=== PATIENT | male | born 1970 | race Hispanic/Latino ===

== ENCOUNTER 2017-07-09 22:51 | Inpatient (IN) | payer SELFPAY ==
[~2017-07-09] VITALS: Ht 179.1 cm; Wt 125.2 kg
[2017-07-09] MEDS ORDERED: NITROGLYCERIN 1GM/1 INCH PACKET TD ONE (23:28)
[2017-07-09 23:41] LABS: BASOPHILS % (AUTO) 0.5 % (0.0-5.0); EOSINOPHILS % (AUTO) 1.6 % (0.0-8.0); HEMATOCRIT 45.5 % (42-54); LYMPHOCYTES % (AUTO) 11.9 % (21.0-51.0); MEAN CORPUSCULAR HEMOGLOBIN 28.7 pg (27.0-33.0); MEAN CORPUSCULAR HGB CONC 33.8 g/dL (32.0-36.0); MEAN CORPUSCULAR VOLUME 85.1 fL (79-99); MONOCYTES % (AUTO) 9.4 % (3.0-13.0); NEUTROPHILS % (AUTO) 76.6 % (40.0-77.0); PLATELET COUNT (AUTO) 245 K/uL (130-400); RED BLOOD CELL COUNT(AUTO) 5.34 MIL/uL (4.50-6.20); RED CELL DISTRIBUTION WIDTH 15.2 % (11.0-15.5); WHITE BLOOD COUNT (AUTO) 10.6 K/uL (4.8-10.8)
[2017-07-09 23:58] LABS: CREATININE 1.1 mg/dL (0.5-1.5); POTASSIUM 4.4 mmol/L (3.5-5.1)
[2017-07-10 00:09] LABS: ALBUMIN 3.8 g/dL (3.5-5.0); CREATINE KINASE MB 1.6 ng/mL (0.5-3.6); TOTAL PROTEIN, SERUM 7.2 g/dL (6.0-8.3)
[2017-07-10 00:13] LABS: B-TYPE NATRIURETIC PEPTIDE 85 pg/mL (0-100)
[2017-07-10] MEDS ORDERED: SODIUM CHLORIDE 0.9% 1000ML 1,000 ML IV ONE (01:05)
[2017-07-10 01:33] LABS: APPEARANCE,URINE Clear (CLEAR); BILIRUBIN,URINE Negative (NEGATIVE); COLOR,URINE Dark Yellow (YELLOW); GLUCOSE, URINE (UA) Negative (NEGATIVE); KETONES,URINE Negative (NEGATIVE); LEUKOCYTE ESTERASE ,URINE Negative (NEGATIVE); NITRATE,URINE Negative (NEGATIVE); OCCULT BLOOD,URINE Small (NEGATIVE); PROTEIN,URINE Negative (NEGATIVE); UROBILINOGEN,URINE 0.2 mg/dL (0.2-1.0)
[2017-07-10 01:44] LABS: BACTERIA,URINE Rare /HPF (None Seen); MUCUS,URINE Few LPF (None Seen); RBC,URINE 0-1 /HPF (0-1); SQUAMOUS EPITHELIAL CELL,UR Few /LPF (0-2); WBC,URINE 0-1 /HPF (0-1)
[2017-07-10] MEDS ORDERED: CLONIDINE HCL 0.1 MG TABLET ONE ×2 (02:07→08:42)
[2017-07-10] MEDS ORDERED: ONDANSETRON HCL 4 MG/2 ML VIAL IV PRN (04:45)
[2017-07-10] MEDS ORDERED: NITROGLYCERIN 0.4 MG SL TAB SL PRN (04:45)
[2017-07-10 07:21] LABS: CREATININE 1.1 mg/dL (0.5-1.5); POTASSIUM 3.6 mmol/L (3.5-5.1)
[2017-07-10] MEDS: METFORMIN HCL 500 MG TABLET PO SCH ×2 (08:00→17:13)
[2017-07-10] MEDS ORDERED: ASPIRIN 81MG TAB.CHEW ONE (08:41)
[2017-07-10] MEDS ORDERED: FUROSEMIDE 20 MG TABLET ONE (08:41)
[2017-07-10] MEDS ORDERED: LISINOPRIL 5 MG TABLET ONE (08:42)
[2017-07-10] MEDS ORDERED: CARVEDILOL 12.5 MG TABLET PO ONE (08:43)
[2017-07-10] MEDS ORDERED: METFORMIN HCL 500 MG TABLET ONE (08:43)
[2017-07-10] MEDS ORDERED: FAMOTIDINE 20MG TAB 20 MG TAB ONE (08:43)
[2017-07-10] MEDS ORDERED: ENOXAPARIN SODIUM 40 MG/0.4 ML SYRINGE SQ ONE (08:43)
[2017-07-10] MEDS: CARVEDILOL 12.5 MG TABLET PO SCH ×2 (09:00→19:54)
[2017-07-10] MEDS: CLONIDINE HCL 0.2 MG TABLET PO SCH ×2 (09:00→19:58)
[2017-07-10] MEDS: LISINOPRIL 20 MG TABLET PO SCH ×2 (09:00→19:53)
[2017-07-10] MEDS: FAMOTIDINE 20MG TAB 20 MG TAB PO SCH ×2 (09:00→19:52)
[2017-07-10] MEDS: ASPIRIN 325 MG TABLET PO SCH (09:00)
[2017-07-10] MEDS: FUROSEMIDE 20 MG TABLET PO SCH (09:00)
[2017-07-10] MEDS: ENOXAPARIN SODIUM 40 MG/0.4 ML SYRINGE SQ SCH (09:00)
[2017-07-10] MEDS ORDERED: HYDRALAZINE HCL 20 MG/ML VIAL ONE (13:47)
[2017-07-10 15:13] VITALS: BP 150/88
[2017-07-10 16:00] VITALS: BP 161/106
[2017-07-10] MEDS ORDERED: CARV25TA PO (16:01)
[2017-07-10] MEDS ORDERED: METF500T6 PO (16:01)
[2017-07-10] MEDS ORDERED: CLON0.2T PO (16:01)
[2017-07-10] MEDS ORDERED: LISI-613 PO (16:01)
[2017-07-10 16:16] VITALS: BP 166/105
[2017-07-10 16:31] VITALS: BP 160/111
[2017-07-10] MEDS ORDERED: ENALAPRILAT DIHYDRATE 1.25MG/ML 1ML VIAL IV PRN (16:45)
[2017-07-10 17:17] VITALS: BP 187/123
[2017-07-10] MEDS: HYDRALAZINE HCL 20 MG/ML VIAL IV PRN (18:03)
[2017-07-10 20:08] VITALS: BP 203/124
[2017-07-11] VITALS (8 sets, daily range): BP systolic 149–178; BP diastolic 88–111
[2017-07-11] MEDS: HYDRALAZINE HCL 20 MG/ML VIAL IV PRN ×3 (02:36→22:06)
[2017-07-11] MEDS ORDERED: ASPIRIN 81MG TAB.CHEW ONE (08:30)
[2017-07-11] MEDS ORDERED: CLONIDINE HCL 0.1 MG TABLET ONE (08:31)
[2017-07-11] MEDS: FUROSEMIDE 20 MG TABLET PO SCH (09:00)
[2017-07-11] MEDS: CLONIDINE HCL 0.2 MG TABLET PO SCH ×3 (09:00→20:56)
[2017-07-11] MEDS: ASPIRIN 325 MG TABLET PO SCH (09:00)
[2017-07-11] MEDS: LISINOPRIL 20 MG TABLET PO SCH ×2 (09:00→20:56)
[2017-07-11] MEDS: CARVEDILOL 12.5 MG TABLET PO SCH ×2 (09:01→20:55)
[2017-07-11] MEDS: METFORMIN HCL 500 MG TABLET PO SCH ×2 (09:01→17:24)
[2017-07-11] MEDS: FAMOTIDINE 20MG TAB 20 MG TAB PO SCH ×2 (09:01→20:53)
[2017-07-11] MEDS: ENOXAPARIN SODIUM 40 MG/0.4 ML SYRINGE SQ SCH (09:02)
[2017-07-12 03:39] VITALS: BP 132/100
[2017-07-12 04:08] LABS: CHOLESTEROL 187 mg/dL (<200); HDL CHOLESTEROL 54 mg/dL (29-71); LDL DIRECT 123 mg/dL (0-99); TRIGLYCERIDES 116 mg/dL (30-200)
[2017-07-12] MEDS: ACETAMINOPHEN 325 MG TAB PO PRN ×3 (04:21→05:38)
[2017-07-12 07:15] VITALS: BP 141/89
[2017-07-12] MEDS ORDERED: HYDROCHLOROTHIAZIDE 25 MG TABLET PO SCH (09:00)
[2017-07-12] MEDS: ASPIRIN 325 MG TABLET PO SCH (09:33)
[2017-07-12] MEDS: CARVEDILOL 12.5 MG TABLET PO SCH (09:36)
[2017-07-12] MEDS: CLONIDINE HCL 0.2 MG TABLET PO SCH ×2 (09:37→14:59)
[2017-07-12] MEDS: FAMOTIDINE 20MG TAB 20 MG TAB PO SCH (09:37)
[2017-07-12] MEDS: LISINOPRIL 20 MG TABLET PO SCH (09:37)
[2017-07-12] MEDS: ENOXAPARIN SODIUM 40 MG/0.4 ML SYRINGE SQ SCH (09:38)
[2017-07-12] MEDS: HYDRALAZINE HCL 20 MG/ML VIAL IV PRN ×2 (11:32→16:11)
[2017-07-12 12:07] VITALS: BP 160/114
[2017-07-12] MEDS: METFORMIN HCL 500 MG TABLET PO SCH (13:00)
[2017-07-12] MEDS ORDERED: ATOR10 PO (14:58)
[2017-07-12] MEDS ORDERED: METF500T6 PO (14:58)
[2017-07-12] MEDS ORDERED: HYDR25TA PO (14:58)
[2017-07-12] MEDS ORDERED: CLON0.3T PO (14:58)
[2017-07-12] MEDS ORDERED: LISI-613 PO (14:58)
[2017-07-12] MEDS ORDERED: ASPI-1012 PO (14:58)
[2017-07-12] MEDS ORDERED: CARV12.580 PO (14:58)
[2017-07-12 16:22] VITALS: BP 162/116
== END 2017-07-12 17:40 | disposition home or self-care (01) | DRG 305 ==
LOC: EDH 22:51 → EDHIP 22:52 → 2CH 07-10 14:42 → 2DH 07-12 05:41
PROVIDERS: ADMIT Family Medicine; ATTEND Family Medicine
DX: I16.0 Hypertensive urgency (principal); N28.1 Cyst of kidney, acquired; E11.9 Type 2 diabetes mellitus without complications; E66.9 Obesity, unspecified; I10 Essential (primary) hypertension; E78.5 Hyperlipidemia, unspecified; Z68.39 Body mass index [BMI] 39.0-39.9, adult; Z79.899 Other long term (current) drug therapy; Z79.84 Long term (current) use of oral hypoglycemic drugs
CPT/HCPCS: 36415; 71046; 76770; 80048; 80053; 80061; 81001; 82550; 82553; 82948; 83835; 83880; 84484; 85025; 93005; 93975; J0360; J1650; J7030

== ENCOUNTER 2017-07-21 00:32 | Emergency (ER) | payer SELFPAY ==
[~2017-07-21 00:32] MED LIST: ASPI-1012 PO; ATOR10 PO; CARV12.580 PO; CLON0.3T PO; HYDR25TA PO; LISI-613 PO; METF500T6 PO
[2017-07-21 01:15] LABS: BASOPHILS % (AUTO) 0.6 % (0.0-5.0); EOSINOPHILS % (AUTO) 2.1 % (0.0-8.0); HEMATOCRIT 43.1 % (42-54); LYMPHOCYTES % (AUTO) 15.6 % (21.0-51.0); MEAN CORPUSCULAR HEMOGLOBIN 28.4 pg (27.0-33.0); MEAN CORPUSCULAR HGB CONC 33.6 g/dL (32.0-36.0); MEAN CORPUSCULAR VOLUME 84.7 fL (79-99); MONOCYTES % (AUTO) 9.4 % (3.0-13.0); NEUTROPHILS % (AUTO) 72.3 % (40.0-77.0); PLATELET COUNT (AUTO) 215 K/uL (130-400); RED BLOOD CELL COUNT(AUTO) 5.09 MIL/uL (4.50-6.20); RED CELL DISTRIBUTION WIDTH 15.4 % (11.0-15.5); WHITE BLOOD COUNT (AUTO) 10.3 K/uL (4.8-10.8)
[2017-07-21 01:17] LABS: CREATININE 1.2 mg/dL (0.5-1.5); POTASSIUM 3.3 mmol/L (3.5-5.1)
[2017-07-21 01:20] LABS: INR 1.02 (0.85-1.15); PARTIAL THROMBOPLASTIN TIME 25.9 SEC (26.3-35.5); PROTHROMBIN TIME 10.7 SEC (9.6-11.6)
[2017-07-21 01:29] LABS: B-TYPE NATRIURETIC PEPTIDE 67 pg/mL (0-100)
[2017-07-21 01:30] LABS: ALBUMIN 3.6 g/dL (3.5-5.0); BILIRUBIN,TOTAL 0.8 mg/dL (0.2-1.0); CREATINE KINASE MB 1.7 ng/mL (0.5-3.6); TOTAL PROTEIN, SERUM 7.2 g/dL (6.0-8.3)
[2017-07-21 01:53] LABS: AMPHET/METH SCREEN,URINE NEGATIVE (NEGATIVE); BARBITURATE SCREEN, URINE NEGATIVE (NEGATIVE); BENZODIAZEPINES SCREEN,URINE NEGATIVE (NEGATIVE); CANNABINOID SCREEN,URINE NEGATIVE (NEGATIVE); COCAINE SCREEN,URINE NEGATIVE (NEGATIVE); OPIATE SCREEN,URINE NEGATIVE (NEGATIVE); PHENCYCLIDINE SCREEN,URINE NEGATIVE (NEGATIVE)
[2017-07-21] MEDS ORDERED: LABETALOL HCL 5 MG/ML 20ML VIAL IV ONE (02:13)
== END 2017-07-21 04:55 | disposition home or self-care (01) ==
LOC: EDH 00:32
DX: I10 Essential (primary) hypertension (principal); R07.89 Other chest pain; E11.9 Type 2 diabetes mellitus without complications
CPT/HCPCS: 36415; 71045; 80053; 80305; 82550; 82553; 83874; 83880; 84484 ×2; 85025; 85610; 85730; 93005 ×2; 96374; 99285; J3490

== ENCOUNTER 2017-07-23 11:25 | Inpatient (IN) | payer SELFPAY ==
[~2017-07-23] VITALS: Ht 177.8 cm; Wt 124.0 kg
[2017-07-23 12:23] LABS: BASOPHILS % (AUTO) 0.6 % (0.0-5.0); HEMATOCRIT 41.7 % (42-54); LYMPHOCYTES % (AUTO) 13.5 % (21.0-51.0); MEAN CORPUSCULAR HGB CONC 34.4 g/dL (32.0-36.0); MEAN CORPUSCULAR VOLUME 84.1 fL (79-99); MONOCYTES % (AUTO) 10.3 % (3.0-13.0); NEUTROPHILS % (AUTO) 73.6 % (40.0-77.0); NUCLEATED RED BLOOD CELLS 0.1 % (0.0-0.19); PLATELET COUNT (AUTO) 233 K/uL (130-400); RED BLOOD CELL COUNT(AUTO) 4.96 MIL/uL (4.50-6.20); RED CELL DISTRIBUTION WIDTH 15.2 % (11.0-15.5); WHITE BLOOD COUNT (AUTO) 9.9 K/uL (4.8-10.8)
[2017-07-23 12:28] LABS: APPEARANCE,URINE Clear (CLEAR); BILIRUBIN,URINE Negative (NEGATIVE); COLOR,URINE Yellow (YELLOW); GLUCOSE, URINE (UA) Negative (NEGATIVE); KETONES,URINE Negative (NEGATIVE); LEUKOCYTE ESTERASE ,URINE Negative (NEGATIVE); NITRATE,URINE Negative (NEGATIVE); OCCULT BLOOD,URINE Moderate (NEGATIVE); PROTEIN,URINE Negative (NEGATIVE); UROBILINOGEN,URINE 0.2 mg/dL (0.2-1.0)
[2017-07-23 12:38] LABS: CREATININE 2.1 mg/dL (0.5-1.5); POTASSIUM 3.3 mmol/L (3.5-5.1)
[2017-07-23 12:39] LABS: INR 1.04 (0.85-1.15); PARTIAL THROMBOPLASTIN TIME 28.4 SEC (26.3-35.5); PROTHROMBIN TIME 10.9 SEC (9.6-11.6)
[2017-07-23 12:51] LABS: ALBUMIN 3.8 g/dL (3.5-5.0); TOTAL PROTEIN, SERUM 7.3 g/dL (6.0-8.3)
[2017-07-23 13:18] LABS: AMPHET/METH SCREEN,URINE NEGATIVE (NEGATIVE); BARBITURATE SCREEN, URINE NEGATIVE (NEGATIVE); BENZODIAZEPINES SCREEN,URINE NEGATIVE (NEGATIVE); CANNABINOID SCREEN,URINE NEGATIVE (NEGATIVE); COCAINE SCREEN,URINE NEGATIVE (NEGATIVE); OPIATE SCREEN,URINE NEGATIVE (NEGATIVE); PHENCYCLIDINE SCREEN,URINE NEGATIVE (NEGATIVE)
[2017-07-23] MEDS ORDERED: NIFEDIPINE ER 30 MG TAB PO ONE (15:30)
[2017-07-23] MEDS ORDERED: HYDRALAZINE HCL 20 MG/ML VIAL IV PRN (17:30)
[2017-07-23] MEDS ORDERED: NIFEDIPINE ER 30 MG TAB PO SCH (17:30)
[2017-07-23 17:34] VITALS: BP 161/110
[2017-07-23 20:00] VITALS: BP 134/92
[2017-07-23] MEDS ORDERED: INSULIN GLARGINE 100 UNITS/ML 10 ML VIAL SQ SCH (21:00)
[2017-07-23] MEDS: INSULIN HUMULIN R 100 UNIT/ML 3ML SQ SCH (21:00)
[2017-07-23] MEDS ORDERED: FAMOTIDINE 20MG TAB 20 MG TAB PO SCH (21:15)
[2017-07-23] MEDS ORDERED: FAMOTIDINE 20MG TAB 20 MG TAB ONE (21:50)
[2017-07-23] MEDS: ACETAMINOPHEN-CODEINE 300/30MG TAB PO PRN (22:15)
[2017-07-24] VITALS (10 sets, daily range): BP systolic 139–173; BP diastolic 85–109
[2017-07-24] MEDS ORDERED: ALPRAZOLAM 0.25 MG TABLET PO ONE (01:15)
[2017-07-24] MEDS: ACETAMINOPHEN-CODEINE 300/30MG TAB PO PRN ×2 (05:25→16:16)
[2017-07-24 05:57] LABS: HEMATOCRIT 46.8 % (42-54); MEAN CORPUSCULAR HEMOGLOBIN 28.7 pg (27.0-33.0); MEAN CORPUSCULAR VOLUME 84.2 fL (79-99); PLATELET COUNT (AUTO) 256 K/uL (130-400); RED BLOOD CELL COUNT(AUTO) 5.55 MIL/uL (4.50-6.20); RED CELL DISTRIBUTION WIDTH 15.2 % (11.0-15.5); WHITE BLOOD COUNT (AUTO) 12.6 K/uL (4.8-10.8)
[2017-07-24] MEDS: INSULIN HUMULIN R 100 UNIT/ML 3ML SQ SCH ×4 (06:08→21:00)
[2017-07-24] MEDS: INSULIN DETEMIR 10ML 100 UNIT/ML 10ML SQ SCH (06:08)
[2017-07-24 06:16] LABS: CREATININE 1.5 mg/dL (0.5-1.5); POTASSIUM 3.2 mmol/L (3.5-5.1)
[2017-07-24] MEDS ORDERED: INSULIN GLARGINE 100 UNITS/ML 10 ML VIAL SQ SCH (07:00)
[2017-07-24] MEDS: ALPRAZOLAM 0.5 MG TABLET PO PRN ×2 (10:10→22:22)
[2017-07-24] MEDS: NIFEDIPINE ER 30 MG TAB PO SCH (10:10)
[2017-07-24] MEDS: FAMOTIDINE 20MG TAB 20 MG TAB PO SCH (10:10)
[2017-07-25 03:10] VITALS: BP 155/104
[2017-07-25 03:53] LABS: MEAN CORPUSCULAR HEMOGLOBIN 28.6 pg (27.0-33.0); MEAN CORPUSCULAR HGB CONC 34.2 g/dL (32.0-36.0); MEAN CORPUSCULAR VOLUME 83.8 fL (79-99); NUCLEATED RED BLOOD CELLS 0.1 % (0.0-0.19); PLATELET COUNT (AUTO) 253 K/uL (130-400); RED BLOOD CELL COUNT(AUTO) 5.37 MIL/uL (4.50-6.20); RED CELL DISTRIBUTION WIDTH 15.3 % (11.0-15.5); WHITE BLOOD COUNT (AUTO) 11.2 K/uL (4.8-10.8)
[2017-07-25 04:04] LABS: EOSINOPHILS % (MANUAL) 1 % (1-6); LYMPHOCYTES % (MANUAL) 16 % (22-44); MONOCYTES % (MANUAL) 11 % (2-9); SEGMENTED NEUTROPHILS % 72 % (40-70)
[2017-07-25 04:05] LABS: MAN.DIFF COMMENT-IMPRESSION MANUAL DIFFERENTIAL; PLATELET MORPHOLOGY COMMENT ADEQUATE
[2017-07-25 04:21] LABS: CREATININE 1.4 mg/dL (0.5-1.5)
[2017-07-25 04:24] LABS: POTASSIUM 2.8 mmol/L (3.5-5.1)
[2017-07-25] MEDS ORDERED: POTASSIUM CHLORIDE 20MEQ/100ML 100 ML IV PRN (05:00)
[2017-07-25] MEDS ORDERED: LIDOCAINE HCL-MPF 1% 2ML VIAL IVP PRN (05:00)
[2017-07-25] MEDS ORDERED: POTASSIUM CHLORIDE 10% ELIXIR 20 MEQ/15 ML UDCUP PO PRN (05:00)
[2017-07-25] MEDS: INSULIN HUMULIN R 100 UNIT/ML 3ML SQ SCH ×4 (06:22→21:00)
[2017-07-25] MEDS: INSULIN DETEMIR 10ML 100 UNIT/ML 10ML SQ SCH (06:22)
[2017-07-25] MEDS ORDERED: SODIUM CHLORIDE 0.9% 500ML 500 ML IV ONE (07:27)
[2017-07-25] MEDS: POTASSIUM CHLORIDE 20 MEQ ERTAB PO PRN ×3 (07:36→12:57)
[2017-07-25] MEDS: NIFEDIPINE ER 30 MG TAB PO SCH (08:43)
[2017-07-25] MEDS: FAMOTIDINE 20MG TAB 20 MG TAB PO SCH (08:43)
[2017-07-25] MEDS: ACETAMINOPHEN-CODEINE 300/30MG TAB PO PRN (08:44)
[2017-07-25 09:04] VITALS: BP 153/130
[2017-07-25] MEDS: ALPRAZOLAM 0.5 MG TABLET PO PRN (10:15)
[2017-07-25 11:59] VITALS: BP 103/54
[2017-07-25] MEDS ORDERED: NIFEDIPINE ER 30 MG TAB PO SCH (12:00)
[2017-07-25] MEDS: NIFEDIPINE ER 30 MG TAB PO ONE ×2 (12:21→12:24)
[2017-07-25] MEDS ORDERED: HYDROXYZINE HCL 25 MG TABLET PO PRN (13:00)
[2017-07-25] MEDS: CLONIDINE HCL 0.3 MG TABLET PO SCH ×2 (13:34→22:01)
[2017-07-25] MEDS ORDERED: FAMO20TA8 PO (15:34)
[2017-07-25] MEDS ORDERED: TRAZ-144 PO (15:34)
[2017-07-25] MEDS ORDERED: HYDR-3421 PO (15:34)
[2017-07-25] MEDS ORDERED: ALPR0.5T8 PO (15:34)
[2017-07-25] MEDS ORDERED: NIFE30TA91 PO (15:34)
[2017-07-25 16:35] VITALS: BP 149/101
[2017-07-25] MEDS ORDERED: PANTOPRAZOLE SODIUM 40 MG TABLET.DR PO ONE (17:43)
[2017-07-25] MEDS: PANTOPRAZOLE SODIUM 40 MG TABLET.DR PO SCH (17:45)
[2017-07-25] MEDS: METFORMIN HCL 500 MG TABLET PO SCH (17:46)
[2017-07-25 19:16] VITALS: BP 129/96
[2017-07-25] MEDS ORDERED: TRAZODONE HCL 50 MG TAB PO SCH (21:00)
[2017-07-25] MEDS ORDERED: ATORVASTATIN CALCIUM 10 MG TABLET PO SCH (21:00)
[2017-07-25] MEDS: LISINOPRIL 20 MG TABLET PO SCH (22:01)
[2017-07-25] MEDS: CARVEDILOL 25 MG TABLET PO SCH (22:03)
[2017-07-25 23:21] VITALS: BP 131/72
[2017-07-26 03:22] VITALS: BP 113/69
[2017-07-26] MEDS: INSULIN DETEMIR 10ML 100 UNIT/ML 10ML SQ SCH (07:00)
[2017-07-26] MEDS: INSULIN HUMULIN R 100 UNIT/ML 3ML SQ SCH ×3 (07:00→16:30)
[2017-07-26 08:00] VITALS: BP 138/95
[2017-07-26] MEDS ORDERED: ASPIRIN 81 MG EC TAB PO SCH (09:00)
[2017-07-26] MEDS ORDERED: NIFEDIPINE ER 30 MG TAB PO SCH ×2 (09:00)
[2017-07-26] MEDS ORDERED: HYDROCHLOROTHIAZIDE 25 MG TABLET PO SCH (09:00)
[2017-07-26] MEDS: PANTOPRAZOLE SODIUM 40 MG TABLET.DR PO SCH (09:16)
[2017-07-26] MEDS: METFORMIN HCL 500 MG TABLET PO SCH ×2 (09:16→18:51)
[2017-07-26] MEDS: LISINOPRIL 20 MG TABLET PO SCH (09:17)
[2017-07-26] MEDS: CARVEDILOL 25 MG TABLET PO SCH (09:17)
[2017-07-26] MEDS: CLONIDINE HCL 0.3 MG TABLET PO SCH ×2 (09:31→18:53)
[2017-07-26 11:00] VITALS: BP 122/80
[2017-07-26] MEDS ORDERED: TRAM50TA2 PO (12:55)
[2017-07-26 16:00] VITALS: BP 106/67
[2017-07-26 18:53] VITALS: BP 106/67
== END 2017-07-26 20:12 | disposition home or self-care (01) | DRG 305 ==
LOC: EDH 11:25 → EDHIP 11:26 → OBSVTOIN 11:26 → 3BH 16:59
PROVIDERS: ADMIT Internal Medicine Nephrology; ATTEND Internal Medicine Nephrology
DX: I10 Essential (primary) hypertension (principal); E11.9 Type 2 diabetes mellitus without complications; E87.6 Hypokalemia; F41.9 Anxiety disorder, unspecified; N28.9 Disorder of kidney and ureter, unspecified; Z82.49 Family history of ischemic heart disease and other diseases of the circulatory system; Z83.3 Family history of diabetes mellitus
CPT/HCPCS: 36415; 80048; 80053; 80305; 81003; 82550; 82553; 82948; 83735; 83874; 84132; 84484; 85025; 85027; 85610; 85730; 93005; J0360; J1815; J3480; J3490; J7040

== ENCOUNTER 2017-07-27 17:47 | Emergency (ER) | payer SELFPAY ==
[~2017-07-27 17:47] MED LIST changes: +ALPR0.5T8 PO; +FAMO20TA8 PO; +HYDR-3421 PO; +NIFE30TA91 PO; +TRAM50TA2 PO; +TRAZ-144 PO
[2017-07-27 18:27] LABS: BASOPHILS % (AUTO) 0.4 % (0.0-5.0); EOSINOPHILS % (AUTO) 1.7 % (0.0-8.0); HEMATOCRIT 40.7 % (42-54); LYMPHOCYTES % (AUTO) 11.3 % (21.0-51.0); MEAN CORPUSCULAR HGB CONC 34.1 g/dL (32.0-36.0); MEAN CORPUSCULAR VOLUME 85.1 fL (79-99); MONOCYTES % (AUTO) 8.2 % (3.0-13.0); NEUTROPHILS % (AUTO) 78.4 % (40.0-77.0); PLATELET COUNT (AUTO) 238 K/uL (130-400); RED BLOOD CELL COUNT(AUTO) 4.78 MIL/uL (4.50-6.20); RED CELL DISTRIBUTION WIDTH 15.2 % (11.0-15.5); WHITE BLOOD COUNT (AUTO) 11.7 K/uL (4.8-10.8)
[2017-07-27 18:43] LABS: PARTIAL THROMBOPLASTIN TIME 27.2 SEC (26.3-35.5); PROTHROMBIN TIME 10.5 SEC (9.6-11.6)
[2017-07-27 19:04] LABS: CREATININE 3.3 mg/dL (0.5-1.5); POTASSIUM 4.1 mmol/L (3.5-5.1)
[2017-07-27] MEDS ORDERED: HYDROXYZINE HCL 25 MG TABLET ONE (19:14)
[2017-07-27 19:21] LABS: CREATINE KINASE MB 3.1 ng/mL (0.5-3.6); TOTAL PROTEIN, SERUM 7.7 g/dL (6.0-8.3)
[2017-07-27] MEDS ORDERED: ACETAMINOPHEN EXTRA STRENGTH 500 MG TABLET ONE (20:07)
== END 2017-07-27 21:46 | disposition home or self-care (01) ==
LOC: EDH 17:47
DX: F41.1 Generalized anxiety disorder (principal); R07.9 Chest pain, unspecified; E11.9 Type 2 diabetes mellitus without complications; I10 Essential (primary) hypertension
CPT/HCPCS: 36415; 71045; 80053; 82550; 82553; 84484; 85025; 85610; 85730; 93005

== ENCOUNTER 2018-02-16 11:29 | Inpatient (IN) | payer SELFPAY ==
[~2018-02-16] VITALS: Ht 177.8 cm; Wt 132.0 kg
[~2018-02-16 11:29] MED LIST changes: +METF-444 PO; -METF500T6 PO; -TRAZ-144 PO; +TRAZ-220 PO
[2018-02-16 12:23] LABS: BASOPHILS % (AUTO) 0.2 % (0.0-5.0); EOSINOPHILS % (AUTO) 0.7 % (0.0-8.0); HEMATOCRIT 34.7 % (42-54); LYMPHOCYTES % (AUTO) 4.5 % (21.0-51.0); MEAN CORPUSCULAR HEMOGLOBIN 28.5 pg (27.0-33.0); MEAN CORPUSCULAR HGB CONC 33.4 g/dL (32.0-36.0); MEAN CORPUSCULAR VOLUME 85.5 fL (79-99); MONOCYTES % (AUTO) 6.1 % (3.0-13.0); NEUTROPHILS % (AUTO) 88.5 % (40.0-77.0); PLATELET COUNT (AUTO) 203 K/uL (130-400); RED BLOOD CELL COUNT(AUTO) 4.06 MIL/uL (4.50-6.20); RED CELL DISTRIBUTION WIDTH 15.4 % (11.0-15.5); WHITE BLOOD COUNT (AUTO) 18.3 K/uL (4.8-10.8)
[2018-02-16 12:49] LABS: CREATININE 4.3 mg/dL (0.5-1.5); POTASSIUM 4.4 mmol/L (3.5-5.1)
[2018-02-16 12:50] LABS: CREATINE KINASE, TOTAL 140 U/L (21-232); MYOGLOBIN 253 ng/mL (10-92); TROPONIN I < 0.04 ng/mL (0.00-0.06)
[2018-02-16 12:55] LABS: ALBUMIN 2.2 g/dL (3.5-5.0); BILIRUBIN,TOTAL 1.5 mg/dL (0.2-1.0); TOTAL PROTEIN, SERUM 6.8 g/dL (6.0-8.3)
[2018-02-16 13:08] LABS: INR 1.15 (0.85-1.15)
[2018-02-16] MEDS ORDERED: SODIUM CHLORIDE 0.9% 500ML 500 ML IV ONE (13:28)
[2018-02-16] MEDS ORDERED: METRONIDAZOLE 500MG/100ML BAG 100 ML ONE (15:09)
[2018-02-16] MEDS ORDERED: LACTATED RINGERS 1000ML 1,000 ML IV ONE (15:35)
[2018-02-16] MEDS ORDERED: SODIUM CHLORIDE 0.9% 50 ML IV ONE (15:35)
[2018-02-16] MEDS ORDERED: ZOSYN 3.375GM+NS 50ML 50 ML IV ONE (15:35)
[2018-02-16] MEDS ORDERED: ACETAMINOPHEN 325 MG TAB ONE (16:03)
[2018-02-16] MEDS: KETOROLAC TROMETHAMINE 15MG/ML IV SCH ×2 (16:15→22:52)
[2018-02-16 16:30] VITALS: BP 102/64
[2018-02-16] MEDS ORDERED: PARO30TA60 PO (19:54)
[2018-02-16] MEDS ORDERED: RANI150C4 PO (19:54)
[2018-02-16] MEDS ORDERED: CARV25TA PO (19:54)
[2018-02-16 20:00] VITALS: BP 86/51
[2018-02-16] MEDS: ZOSYN 3.375GM+NS 50ML 50 ML IV SCH (21:46)
[2018-02-16] MEDS: METRONIDAZOLE 500MG/100ML BAG 100 ML IVPB SCH (21:46)
[2018-02-17] VITALS (7 sets, daily range): BP systolic 78–113; BP diastolic 43–68
[2018-02-17] MEDS ORDERED: LACTATED RINGERS 1000ML 1,000 ML IV ONE ×2 (01:13→09:30)
[2018-02-17] MEDS: KETOROLAC TROMETHAMINE 15MG/ML IV SCH ×2 (04:12→10:26)
[2018-02-17 04:59] LABS: HEMATOCRIT 33.1 % (42-54); MEAN CORPUSCULAR HEMOGLOBIN 29.4 pg (27.0-33.0); MEAN CORPUSCULAR HGB CONC 34.1 g/dL (32.0-36.0); MEAN CORPUSCULAR VOLUME 86.3 fL (79-99); PLATELET COUNT (AUTO) 231 K/uL (130-400); RED BLOOD CELL COUNT(AUTO) 3.83 MIL/uL (4.50-6.20); RED CELL DISTRIBUTION WIDTH 15.8 % (11.0-15.5); WHITE BLOOD COUNT (AUTO) 15.7 K/uL (4.8-10.8)
[2018-02-17 05:06] LABS: CREATININE 4.5 mg/dL (0.5-1.5); POTASSIUM 3.1 mmol/L (3.5-5.1)
[2018-02-17] MEDS: METRONIDAZOLE 500MG/100ML BAG 100 ML IVPB SCH ×3 (06:09→21:29)
[2018-02-17] MEDS ORDERED: PNEUMOCOCCAL VACCINE POLYVALENT 0.5 ML/VIAL [PPV] IM SCH (09:00)
[2018-02-17] MEDS: ZOSYN 3.375GM+NS 50ML 50 ML IV SCH ×2 (09:33→20:24)
[2018-02-17] MEDS: ONDANSETRON HCL 4 MG/2 ML VIAL IVP PRN ×2 (11:31→16:21)
[2018-02-17] MEDS: MORPHINE SULFATE 2 MG/ML 1ML SYG IVP PRN (16:21)
[2018-02-17] MEDS: LACTATED RINGERS 1000ML 1,000 ML IV SCH (20:24)
[2018-02-18 00:14] VITALS: BP 88/57
[2018-02-18] MEDS: MORPHINE SULFATE 2 MG/ML 1ML SYG IVP PRN ×2 (00:21→11:55)
[2018-02-18] MEDS: LACTATED RINGERS 1000ML 1,000 ML IV SCH ×5 (01:12→21:02)
[2018-02-18 04:01] VITALS: BP 111/51
[2018-02-18] MEDS: METRONIDAZOLE 500MG/100ML BAG 100 ML IVPB SCH ×3 (04:50→21:46)
[2018-02-18 05:54] LABS: MEAN CORPUSCULAR HEMOGLOBIN 28.7 pg (27.0-33.0); MEAN CORPUSCULAR HGB CONC 33.1 g/dL (32.0-36.0); MEAN CORPUSCULAR VOLUME 86.6 fL (79-99); PLATELET COUNT (AUTO) 214 K/uL (130-400); RED BLOOD CELL COUNT(AUTO) 3.69 MIL/uL (4.50-6.20); RED CELL DISTRIBUTION WIDTH 15.8 % (11.0-15.5); WHITE BLOOD COUNT (AUTO) 15.6 K/uL (4.8-10.8)
[2018-02-18 06:21] LABS: ALBUMIN 1.7 g/dL (3.5-5.0); BILIRUBIN,TOTAL 0.8 mg/dL (0.2-1.0); CREATININE 3.6 mg/dL (0.5-1.5); MAGNESIUM 1.9 mg/dL (1.80-2.40); PHOSPHORUS 5.2 mg/dL (2.5-4.9); POTASSIUM 3.2 mmol/L (3.5-5.1); TOTAL PROTEIN, SERUM 5.4 g/dL (6.0-8.3)
[2018-02-18 07:00] VITALS: BP 117/60
[2018-02-18] MEDS ORDERED: PANTOPRAZOLE 40 MG/VIAL IVP SCH ×2 (09:00→12:16)
[2018-02-18] MEDS: ZOSYN 3.375GM+NS 50ML 50 ML IV SCH ×2 (09:04→21:46)
[2018-02-18] MEDS: THIAMINE HCL 100 MG/ML 2ML VIAL IVP SCH (09:10)
[2018-02-18 11:00] VITALS: BP 120/54
[2018-02-18] MEDS: ONDANSETRON HCL 4 MG/2 ML VIAL IVP PRN (11:55)
[2018-02-18] MEDS ORDERED: LIDOCAINE HCL-MPF 1% 2ML VIAL IVP PRN ×2 (13:45→20:00)
[2018-02-18] MEDS ORDERED: POTASSIUM CHLORIDE 10MEQ/100ML 100 ML IV PRN (13:45)
[2018-02-18] MEDS: ACETAMINOPHEN 325 MG TAB PO PRN (14:31)
[2018-02-18 16:00] VITALS: BP 117/60
[2018-02-18 20:00] VITALS: BP 97/46
[2018-02-18] MEDS ORDERED: POTASSIUM CHLORIDE 10% ELIXIR 20 MEQ/15 ML UDCUP PO PRN (20:00)
[2018-02-19] VITALS (7 sets, daily range): BP systolic 109–141; BP diastolic 67–94
[2018-02-19] MEDS: LACTATED RINGERS 1000ML 1,000 ML IV SCH ×3 (02:00→23:19)
[2018-02-19] MEDS: MORPHINE SULFATE 2 MG/ML 1ML SYG IVP PRN (02:03)
[2018-02-19] MEDS: ONDANSETRON HCL 4 MG/2 ML VIAL IVP PRN ×2 (02:11→18:40)
[2018-02-19] MEDS: METRONIDAZOLE 500MG/100ML BAG 100 ML IVPB SCH ×3 (05:11→22:05)
[2018-02-19 06:06] LABS: BASOPHILS % (AUTO) 0.3 % (0.0-5.0); EOSINOPHILS % (AUTO) 0.9 % (0.0-8.0); LYMPHOCYTES % (AUTO) 3.9 % (21.0-51.0); MEAN CORPUSCULAR HEMOGLOBIN 29.5 pg (27.0-33.0); MEAN CORPUSCULAR HGB CONC 34.4 g/dL (32.0-36.0); MEAN CORPUSCULAR VOLUME 85.8 fL (79-99); MONOCYTES % (AUTO) 5.4 % (3.0-13.0); NEUTROPHILS % (AUTO) 89.5 % (40.0-77.0); PLATELET COUNT (AUTO) 274 K/uL (130-400); RED CELL DISTRIBUTION WIDTH 15.8 % (11.0-15.5); WHITE BLOOD COUNT (AUTO) 15.3 K/uL (4.8-10.8)
[2018-02-19 06:22] LABS: CREATININE 2.7 mg/dL (0.5-1.5); MAGNESIUM 1.9 mg/dL (1.80-2.40)
[2018-02-19] MEDS: POTASSIUM CHLORIDE 20 MEQ ERTAB PO PRN ×4 (06:47→23:42)
[2018-02-19] MEDS: ZOSYN 3.375GM+NS 50ML 50 ML IV SCH ×2 (08:42→20:23)
[2018-02-19] MEDS: THIAMINE HCL 100 MG/ML 2ML VIAL IVP SCH (08:43)
[2018-02-19] MEDS ORDERED: PANTOPRAZOLE 40 MG/VIAL IVP SCH (09:00)
[2018-02-19] MEDS ORDERED: DIATR MEGLU/DIATRIZOATE SODIUM 30 ML BOTTLE ONE (13:53)
[2018-02-19] MEDS: POTASSIUM CHLORIDE 10MEQ/100ML 100 ML IV PRN (20:24)
[2018-02-19] MEDS: ACETAMINOPHEN 325 MG TAB PO PRN (23:43)
[2018-02-20] VITALS (7 sets, daily range): BP systolic 121–166; BP diastolic 68–93
[2018-02-20] MEDS: METRONIDAZOLE 500MG/100ML BAG 100 ML IVPB SCH ×3 (04:59→20:24)
[2018-02-20 05:29] LABS: BASOPHILS % (AUTO) 0.3 % (0.0-5.0); EOSINOPHILS % (AUTO) 0.8 % (0.0-8.0); HEMATOCRIT 37.2 % (42-54); LYMPHOCYTES % (AUTO) 4.5 % (21.0-51.0); MEAN CORPUSCULAR HEMOGLOBIN 28.6 pg (27.0-33.0); MEAN CORPUSCULAR VOLUME 86.7 fL (79-99); MONOCYTES % (AUTO) 5.2 % (3.0-13.0); NEUTROPHILS % (AUTO) 89.2 % (40.0-77.0); PLATELET COUNT (AUTO) 293 K/uL (130-400); RED BLOOD CELL COUNT(AUTO) 4.29 MIL/uL (4.50-6.20); RED CELL DISTRIBUTION WIDTH 15.7 % (11.0-15.5); WHITE BLOOD COUNT (AUTO) 17.4 K/uL (4.8-10.8)
[2018-02-20 05:39] LABS: CREATININE 2.5 mg/dL (0.5-1.5); POTASSIUM 3.2 mmol/L (3.5-5.1)
[2018-02-20] MEDS: POTASSIUM CHLORIDE 20 MEQ ERTAB PO PRN ×3 (05:49→10:29)
[2018-02-20] MEDS: LACTATED RINGERS 1000ML 1,000 ML IV SCH ×3 (05:50→20:05)
[2018-02-20] MEDS: PANTOPRAZOLE SODIUM 40 MG TABLET.DR PO SCH (10:23)
[2018-02-20] MEDS: THIAMINE HCL 100 MG/ML 2ML VIAL IVP SCH (10:23)
[2018-02-20] MEDS: ZOSYN 3.375GM+NS 50ML 50 ML IV SCH ×2 (10:23→20:24)
[2018-02-20] MEDS: ACETAMINOPHEN 325 MG TAB PO PRN (10:29)
[2018-02-20] MEDS: ONDANSETRON HCL 4 MG/2 ML VIAL IVP PRN ×2 (16:46→21:26)
[2018-02-21] VITALS (14 sets, daily range): BP systolic 135–168; BP diastolic 68–102
[2018-02-21] MEDS: LACTATED RINGERS 1000ML 1,000 ML IV SCH ×4 (00:27→22:45)
[2018-02-21 04:20] LABS: BASOPHILS % (AUTO) 0.4 % (0.0-5.0); LYMPHOCYTES % (AUTO) 6.8 % (21.0-51.0); MEAN CORPUSCULAR HEMOGLOBIN 29.6 pg (27.0-33.0); MEAN CORPUSCULAR HGB CONC 34.5 g/dL (32.0-36.0); MEAN CORPUSCULAR VOLUME 85.8 fL (79-99); NEUTROPHILS % (AUTO) 83.8 % (40.0-77.0); NUCLEATED RED BLOOD CELLS 0.1 % (0.0-0.19); PLATELET COUNT (AUTO) 305 K/uL (130-400); RED BLOOD CELL COUNT(AUTO) 3.73 MIL/uL (4.50-6.20); RED CELL DISTRIBUTION WIDTH 15.9 % (11.0-15.5); WHITE BLOOD COUNT (AUTO) 13.7 K/uL (4.8-10.8)
[2018-02-21 04:31] LABS: CREATININE 1.9 mg/dL (0.5-1.5)
[2018-02-21 04:36] LABS: POTASSIUM 2.9 mmol/L (3.5-5.1)
[2018-02-21] MEDS: METRONIDAZOLE 500MG/100ML BAG 100 ML IVPB SCH ×3 (05:27→22:57)
[2018-02-21] MEDS ORDERED: PNEUMOCOCCAL VACCINE POLYVALENT 0.5 ML/VIAL [PPV] ONE (05:47)
[2018-02-21] MEDS: PANTOPRAZOLE SODIUM 40 MG TABLET.DR PO SCH (05:54)
[2018-02-21] MEDS: THIAMINE HCL 100 MG/ML 2ML VIAL IVP SCH (08:12)
[2018-02-21] MEDS: ZOSYN 3.375GM+NS 50ML 50 ML IV SCH ×2 (08:12→22:16)
[2018-02-21] MEDS: POTASSIUM CHLORIDE 20 MEQ ERTAB PO PRN ×4 (08:13→16:48)
[2018-02-21] MEDS: POTASSIUM CHLORIDE 10MEQ/100ML 100 ML IV PRN (08:29)
[2018-02-21 08:35] LABS: INR 1.41 (0.85-1.15); PARTIAL THROMBOPLASTIN TIME 37.1 SEC (26.3-35.5); PROTHROMBIN TIME 14.7 SEC (9.6-11.6)
[2018-02-21] MEDS ORDERED: LIDOCAINE HCL MPF 1% 5ML VIAL ONE (09:14)
[2018-02-21] MEDS ORDERED: FENTANYL CITRATE PF 50 MCG/1 ML 2ML VIAL ONE (12:20)
[2018-02-21] MEDS ORDERED: MIDAZOLAM HCL 1 MG/ML 2ML VIAL ONE (12:20)
[2018-02-21 14:52] LABS: APPEARANCE BODY FLUID TURBID (CLEAR); SPECIMENTYPE,BODY FLUID LFT PELVIC ABSCESS
[2018-02-21 14:53] LABS: COLOR,BODY FLUID BROWN (LT YELLOW); TOTAL VOLUME,BODY FLUID 20 mL
[2018-02-21 15:20] LABS: BODY FLUID RBC 5000 /cu. mm.; BODY FLUID WBC 32175 /cu. mm.
[2018-02-21 16:14] LABS: BF LYMPHOCYTE 50 %
[2018-02-21] MEDS: ONDANSETRON HCL 4 MG/2 ML VIAL IVP PRN (16:49)
[2018-02-22] VITALS: BP 147/88
[2018-02-22 04:00] VITALS: BP 147/94
[2018-02-22 04:42] LABS: HEMATOCRIT 33.9 % (42-54); MEAN CORPUSCULAR HEMOGLOBIN 28.6 pg (27.0-33.0); MEAN CORPUSCULAR HGB CONC 33.1 g/dL (32.0-36.0); MEAN CORPUSCULAR VOLUME 86.6 fL (79-99); NUCLEATED RED BLOOD CELLS 0.1 % (0.0-0.19); PLATELET COUNT (AUTO) 315 K/uL (130-400); RED BLOOD CELL COUNT(AUTO) 3.92 MIL/uL (4.50-6.20); RED CELL DISTRIBUTION WIDTH 16.5 % (11.0-15.5); WHITE BLOOD COUNT (AUTO) 15.7 K/uL (4.8-10.8)
[2018-02-22 05:06] LABS: MAGNESIUM 2.1 mg/dL (1.80-2.40)
[2018-02-22 05:07] LABS: BAND NEUTROPHILS % (MANUAL) 10 % (0-2); BASOPHILS % (MANUAL) 1 % (0-2); LYMPHOCYTES % (MANUAL) 22 % (22-44); MAN.DIFF COMMENT-IMPRESSION MANUAL DIFFERENTIAL; MONOCYTES % (MANUAL) 5 % (2-9); PLATELET MORPHOLOGY COMMENT ADEQUATE; SEGMENTED NEUTROPHILS % 62 % (40-70)
[2018-02-22] MEDS: METRONIDAZOLE 500MG/100ML BAG 100 ML IVPB SCH ×3 (05:14→22:37)
[2018-02-22] MEDS: LACTATED RINGERS 1000ML 1,000 ML IV SCH ×3 (06:39→18:45)
[2018-02-22] MEDS: PANTOPRAZOLE SODIUM 40 MG TABLET.DR PO SCH (06:39)
[2018-02-22 08:12] VITALS: BP 149/98
[2018-02-22] MEDS: ZOSYN 3.375GM+NS 50ML 50 ML IV SCH ×2 (10:11→21:44)
[2018-02-22] MEDS: THIAMINE HCL 100 MG/ML 2ML VIAL IVP SCH (10:11)
[2018-02-22 12:22] VITALS: BP 137/99
[2018-02-22] MEDS: CARVEDILOL 25 MG TABLET PO SCH ×2 (15:57→21:50)
[2018-02-22 17:38] VITALS: BP 152/107
[2018-02-22 20:00] VITALS: BP 104/73
[2018-02-23] VITALS: BP 118/73
[2018-02-23 04:00] VITALS: BP 111/70
[2018-02-23] MEDS: METRONIDAZOLE 500MG/100ML BAG 100 ML IVPB SCH ×2 (05:04→14:00)
[2018-02-23 05:06] LABS: HEMATOCRIT 35.2 % (42-54); MEAN CORPUSCULAR HEMOGLOBIN 28.9 pg (27.0-33.0); MEAN CORPUSCULAR HGB CONC 33.3 g/dL (32.0-36.0); MEAN CORPUSCULAR VOLUME 86.8 fL (79-99); NUCLEATED RED BLOOD CELLS 0.1 % (0.0-0.19); PLATELET COUNT (AUTO) 435 K/uL (130-400); RED BLOOD CELL COUNT(AUTO) 4.06 MIL/uL (4.50-6.20); RED CELL DISTRIBUTION WIDTH 16.4 % (11.0-15.5); WHITE BLOOD COUNT (AUTO) 14.8 K/uL (4.8-10.8)
[2018-02-23 05:09] LABS: POTASSIUM 3.7 mmol/L (3.5-5.1)
[2018-02-23 05:17] LABS: BAND NEUTROPHILS % (MANUAL) 9 % (0-2); LYMPHOCYTES % (MANUAL) 13 % (22-44); MAN.DIFF COMMENT-IMPRESSION MANUAL DIFFERENTIAL; MONOCYTES % (MANUAL) 2 % (2-9); PLATELET MORPHOLOGY COMMENT INCREASED; SEGMENTED NEUTROPHILS % 76 % (40-70)
[2018-02-23] MEDS: PANTOPRAZOLE SODIUM 40 MG TABLET.DR PO SCH (06:21)
[2018-02-23] MEDS: LACTATED RINGERS 1000ML 1,000 ML IV SCH (06:21)
[2018-02-23 08:00] VITALS: BP 146/99
[2018-02-23] MEDS: CARVEDILOL 25 MG TABLET PO SCH (09:53)
[2018-02-23] MEDS: ZOSYN 3.375GM+NS 50ML 50 ML IV SCH (09:53)
[2018-02-23] MEDS: THIAMINE HCL 100 MG/ML 2ML VIAL IVP SCH (09:53)
[2018-02-23 11:38] VITALS: BP 150/95
[2018-02-23] MEDS ORDERED: AMOX-426 PO (12:49)
== END 2018-02-23 16:15 | disposition home or self-care (01) | DRG 872 ==
LOC: EDH 11:29 → EDHIP 11:30 → 3CH 16:31
PROVIDERS: ADMIT Surgery; ATTEND Surgery
PROC: 3E0234Z Introduction of Serum, Toxoid and Vaccine into Muscle, Percutaneous Approach (ICD-10-PCS; principal; 2018-02-17)
PROC: 3E0234Z Introduction of Serum, Toxoid and Vaccine into Muscle, Percutaneous Approach (ICD-10-PCS; 2018-02-17)
DX: A41.9 Sepsis, unspecified organism (principal); K57.80 Diverticulitis of intestine, part unspecified, with perforation and abscess without bleeding; N17.9 Acute kidney failure, unspecified; Z68.41 Body mass index [BMI] 40.0-44.9, adult; D64.9 Anemia, unspecified; E11.21 Type 2 diabetes mellitus with diabetic nephropathy; E66.9 Obesity, unspecified; E87.6 Hypokalemia; I10 Essential (primary) hypertension; Z23 Encounter for immunization
CPT/HCPCS: 36415; 49406; 74176; 75989; 80048; 80053; 82270; 82550; 82948; 83605; 83690; 83735; 83874; 83935; 84100; 84300; 84484; 84550; 85025; 85027; 85610; 85730; 87040; 87071; 87077; 87186; 87205; 89051; 90732; 93005; 99152; 99291; C9113; J1885; J2250; J2405; J2543; J3010; J3411; J3490; J7040; J7120; Q2038; Q9963

== ENCOUNTER 2018-03-05 06:00 | Emergency (ER) | payer SELFPAY ==
[~2018-03-05 06:00] MED LIST changes: -ALPR0.5T8 PO; +AMOX-426 PO; -ASPI-1012 PO; -ATOR10 PO; -CARV12.580 PO; +CARV25TA PO; -FAMO20TA8 PO; -HYDR-3421 PO; -METF-444 PO; -NIFE30TA91 PO; +PARO30TA60 PO; +RANI150C4 PO; -TRAM50TA2 PO; -TRAZ-220 PO
== END 2018-03-05 07:48 | disposition home or self-care (01) ==
LOC: EDH 06:00
DX: Z48.03 Encounter for change or removal of drains (principal); E11.9 Type 2 diabetes mellitus without complications; I10 Essential (primary) hypertension
CPT/HCPCS: 99281

== ENCOUNTER 2018-03-07 07:09 | Day surgery (SDC) | payer SELFPAY ==
[~2018-03-07] VITALS: Ht 177.8 cm; Wt 125.5 kg
[2018-03-07 07:52] LABS: EOSINOPHILS % (AUTO) 1.3 % (0.0-8.0); HEMATOCRIT 33.2 % (42-54); LYMPHOCYTES % (AUTO) 11.8 % (21.0-51.0); MEAN CORPUSCULAR HEMOGLOBIN 29.2 pg (27.0-33.0); MEAN CORPUSCULAR HGB CONC 33.3 g/dL (32.0-36.0); MEAN CORPUSCULAR VOLUME 87.8 fL (79-99); MONOCYTES % (AUTO) 13.7 % (3.0-13.0); NEUTROPHILS % (AUTO) 72.2 % (40.0-77.0); NUCLEATED RED BLOOD CELLS 0.1 % (0.0-0.19); PLATELET COUNT (AUTO) 390 K/uL (130-400); RED BLOOD CELL COUNT(AUTO) 3.78 MIL/uL (4.50-6.20); WHITE BLOOD COUNT (AUTO) 9.3 K/uL (4.8-10.8)
[2018-03-07 08:03] LABS: CREATININE 1.3 mg/dL (0.5-1.5); POTASSIUM 4.2 mmol/L (3.5-5.1)
[2018-03-07 08:07] LABS: INR 1.04 (0.85-1.15); PARTIAL THROMBOPLASTIN TIME 32.7 SEC (26.3-35.5); PROTHROMBIN TIME 10.9 SEC (9.6-11.6)
[2018-03-07] MEDS ORDERED: SODIUM CHLORIDE 0.9% 1000ML 1,000 ML IV ONE (08:20)
[2018-03-07] MEDS ORDERED: LIDOCAINE HCL 1% MDV 50ML VIAL ONE (08:22)
[2018-03-07] MEDS ORDERED: IODIXANOL 320 MG/ML 100 ML VIAL ONE (08:22)
[2018-03-07 08:34] VITALS: BP 143/90
[2018-03-07 09:37] VITALS: BP 155/93
[2018-03-07 09:50] VITALS: BP 148/88
[2018-03-07 10:05] VITALS: BP 147/89
[2018-03-07] MEDS ORDERED: ACETAMINOPHEN 325 MG TAB ONE (10:25)
== END 2018-03-07 10:50 | disposition home or self-care (01) ==
LOC: CLH 07:09 → DAH 07:09 → CLH 10:50
PROVIDERS: ATTEND Surgery
DX: K57.80 Diverticulitis of intestine, part unspecified, with perforation and abscess without bleeding (principal); E11.21 Type 2 diabetes mellitus with diabetic nephropathy; I10 Essential (primary) hypertension; Z79.84 Long term (current) use of oral hypoglycemic drugs; Z98.890 Other specified postprocedural states; Z79.899 Other long term (current) drug therapy
CPT/HCPCS: 36415; 49424; 76080; 80048; 82948; 85025; 85610; 85730; A4606; C1769; J1644; J3490; J7030; Q9967